=== PATIENT | female | born 1990 | race Caucasian/White ===

== ENCOUNTER 2021-05-22 18:17 | Emergency (ER) | payer BC ==
[2021-05-22 18:36] VITALS: BP 116/55
== END 2021-05-22 19:34 | disposition home or self-care (01) | DRG 831 ==
LOC: ED 18:17
DX: O98.513 Other viral diseases complicating pregnancy, third trimester (principal); U07.1 COVID-19; Z3A.36 36 weeks gestation of pregnancy